=== PATIENT | male | born 2005 | race Caucasian/White ===

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

== ENCOUNTER 2024-03-31 22:01 | Emergency (ER) | payer OTHER, SELFPAY ==
[2024-03-31 22:03] VITALS: BP 165/76; PULSE 73; RESP 18; TEMP 37; O2SAT 99; BMI 23.1
--- NOTE | 2024-03-31 22:10 | ED_ITS ---
<Statement entered by Yann Hardwick MD - 03/31/24 22:57> I was consulted by the DEDE, and we discussed the complexity of the problems being addressed. I approved the treatment and management plan for this patient's care in the emergency department, thus performing a substantive portion of the medical decision making. Yann Hardwick MD, YISEL, FACEP Discharge Plan Disposition Patient Disposition: Home, Self-Care Condition: Good Prescriptions Prescriptions: No Action prednisone 20 mg tablet 20 mg PO BID 5 Days Qty: 10 0RF Rx Instructions: administer with food or milk triamcinolone acetonide 0.5 % cream 1 applic TOPICAL BID 7 Days Qty: 15 1RF melatonin 10 mg capsule 10 mg PO HS PRN trazodone 100 mg tablet 100 mg PO QHS PRN [id number]-fuqkurgwi-[id number] 118 ML syrup 5 ml PO Q6HP PRN (Reason: Cough) Qty: 240 0RF ondansetron 4 MG tablet,disintegrating 4 mg PO Q8HP PRN (Reason: Nausea) Qty: 20 0RF Referrals Follow up/Referrals: Vicki Sales APRN [Primary Care Provider] - See instructions Cayetano Silva DO [Staff Physician] - See instructions Activity Restrictions/Add. Instructions Additional Instructions/Restrictions: Please call in the morning to make an appointment for orthopedics evaluation with Dr. Silva. Return to the ER for any worsening signs or symptoms as needed. Clinical Impressions Clinical Impression: Left ankle sprain Instructions Patient Instructions: DI for Ankle Sprain Discharge ED Provider: Yann Hardwick General Adult HPI General Chief complaint: PAIN Stated complaint: AO/ LT ankle inj Time Seen by Provider: 03/31/24 22:10 History of Present Illness HPI narrative: Patient presents for left ankle injury. Patient states he was walking his dog this morning and stepped in a hole while his dog was chasing rabbit . In any event patient states it was difficult to walk on it then he spent most of the day in the bed and when he woke up he was very tender to palpation and he could not bear weight. Denies any numbness or tingling loss of sensation Related Data Home Medications Medication Instructions Recorded Confirmed melatonin 10 mg capsule 10 mg PO HS PRN 05/11/19 07/19/19 trazodone 100 mg tablet 100 mg PO QHS PRN 05/11/19 07/19/19 Previous Rx's Medication Instructions Recorded prednisone 20 mg tablet 20 mg PO BID insect bites 5 days 07/19/19 #10 tabs triamcinolone acetonide 0.5 % 1 applic topical BID insect bites 07/19/19 topical cream 7 days #15 grams uzxuurlkqgbomov-rcfhynpbsonpkak-AB 5 ml PO Q6HP PRN Cough #240 mL 05/17/21 2 mg-30 mg-10 mg/5 mL oral syrup ondansetron 4 mg disintegrating 4 mg PO Q8HP PRN Nausea #20 tabs 05/17/21 tablet Allergies Allergy/AdvReac Type Severity Reaction Status Date / Time amoxicillin Allergy Verified 07/19/19 12:17 ziprasidone [From Geodon] AdvReac Severe Verified 07/19/19 [facility] Disclaimer: The information contained in this section may have been updated after the patient was seen, as this information can be updated by other users. Social History Smoking Status: Current every day smoker tobacco type: cigarettes second hand exposure: Yes alcohol intake: current alcohol intake frequency: holidays/special occasions only substance use type: denies use current occupational status: student Travel in the last 8 weeks: None household members: family housing: house current occupational exposures/hazards: No caffeine: No ROS Obtained: Yes Systems reviewed as appropriate & no additional complaints except as documented Physical Exam General General appearance: alert and in no apparent distress Respiratory Respiratory exam: Present normal lung sounds bilaterally Cardiovascular Cardiovascular exam: Present regular rate and normal rhythm Expanded Lower Extremity Exam Left: Top foot image: 2 1. Ecchymosis edema tenderness but no bony deformity noted on palpation. Palpable DP PT Neurological Exam Neurological exam: Present alert and oriented X3 Medical Decision Making Wilbert Inquiry Pt receiving controlled substance: No Vital Signs: 03/31/24 22:03 Temperature 98.6 F Temperature Source Oral Pulse Rate [Left] 73 Respiratory Rate 18 Blood Pressure [Right Arm] 165/76 H Blood Pressure Mean [Right Arm] 105 02 Sat by Pulse Oximetry 99 Oxygen Delivery Method Room Air Orders (Tests/Meds): ED MEDICATIONS Discontinued Medications Generic Name Dose Route Start Last Admin Trade Name Freq PRN Reason Stop Dose Admin Acetaminophen 1,000 mg 03/31/24 22:16 03/31/24 22:41 Acetaminophen 500mg Tab PO 03/31/24 22:17 1,000 mg ONCE ONE Administration Ibuprofen 800 mg 03/31/24 22:16 03/31/24 22:42 Ibuprofen 400 Mg Tablet PO 03/31/24 22:17 800 mg ONCE ONE Administration ORDERS Category Date Time Status Ankle XR - Left minimum 3 Views [XR ankle LT min 3V] Exams 03/31/24 22:15 Taken Stat Foot XR left 2 views [XR foot LT 2V] Stat Exams 03/31/24 22:15 Taken Tibia/fibula XR left 2 views [XR tibia fibula LT 2V] Exams 03/31/24 22:15 Taken Stat Medical Decision Narrative: In summary patient is a 18-year-old male who presents to the emergency department for evaluation of left ankle pain. Patient is hemodynamically stable upon arrival, afebrile. Physical exam is remarkable for tenderness to palpation at the bilateral malleoli along with ecchymosis edema and painful range of motion. He is neurovascular tact distally with palpable DP PT.. Differential diagnosis includes fracture versus sprain. Initial workup will be conducted with plain from x-rays. Initial interventions include Tylenol Motrin orally. Initial workup reviewed by me and his hematologic labs show no acute fracture via my informal interpretation. Upon repeat evaluation patient did have some reduction after initial intervention of his pain. Given this patient is appropriate for discharge with follow-up with Dr. Silva Critical Care Critical Care Time Critical Care Time: No
--- NOTE | 2024-03-31 22:15 | XR_ITS ---
PROCEDURE INFORMATION: Exam: XR Left Foot Exam date and time: 03/31/2024 10:14 PM Age: 18 years old Clinical indication: Pain; Foot; Left; Additional info: Fall TECHNIQUE: Imaging protocol: Radiologic exam of the left foot. Views: 1 or 2 views. Total images: 2 COMPARISON: DX KNEELMLT XR knee LT 2V 07/20/2018 12:36 PM FINDINGS: Bones/joints: No acute fracture or joint dislocation. No concerning bone lesions or calcifications. Unremarkable joint spaces. Soft tissues: Soft tissue swelling hindfoot and ankle. IMPRESSION: 1. No acute osseous abnormality. 2. Soft tissue swelling hindfoot and ankle.
--- NOTE | 2024-03-31 22:15 | XR_ITS ---
PROCEDURE INFORMATION: Exam: XR Left Tibia and Fibula Exam date and time: 03/31/2024 10:18 PM Age: 18 years old Clinical indication: Pain; Lower leg; Left; Additional info: Fall TECHNIQUE: Imaging protocol: Radiologic exam of the left tibia and fibula. Views: 2 views. Total images: 4 COMPARISON: CR Ankle L 03/31/2024 10:16 PM FINDINGS: Bones/joints: No acute fracture or joint dislocation. No joint effusions. No concerning bone lesions or calcifications. Unremarkable joint spaces. Soft tissues: Soft tissue swelling anterolateral ankle. IMPRESSION: Negative left tibia and fibula.
--- NOTE | 2024-03-31 22:15 | XR_ITS ---
PROCEDURE INFORMATION: Exam: XR Left Ankle Exam date and time: 03/31/2024 10:16 PM Age: 18 years old Clinical indication: Pain; Ankle; Left; Additional info: Fall TECHNIQUE: Imaging protocol: Radiologic exam of the left ankle. Views: 3 or more views. Total images: 3 COMPARISON: CR Foot L 03/31/2024 10:14 PM FINDINGS: Bones/joints: No acute fracture, joint dislocation, or joint effusion. The ankle mortise is maintained. Unremarkable joint spaces. No concerning bone lesions. Soft tissues: Anterolateral soft tissue swelling. IMPRESSION: 1. No acute osseous abnormality. 2. Anterolateral soft tissue swelling.
[2024-03-31] MEDS: ACETAMINOPHEN 500MG TAB 1000 MG PO (22:41)
[2024-03-31] MEDS: IBUPROFEN 400 MG TABLET 800 MG PO (22:42)
[2024-03-31 22:56] VITALS: BP 128/59; PULSE 74; RESP 15; TEMP 36.7; O2SAT 98
== END 2024-03-31 22:57 | disposition home or self-care (01) ==
PROVIDERS: Emergency Provider Student in an Organized Health Care Education/Training Program; PCP Nurse Practitioner
DX: S93.402A Sprain of unspecified ligament of left ankle, initial encounter (principal); M25.572 Pain in left ankle and joints of left foot; W18.42XA Slipping, tripping and stumbling without falling due to stepping into hole or opening, initial encounter
CPT/HCPCS: 73590; 73610; 73620; 99283